=== PATIENT | male | born 1980 | race Hispanic/Latino ===

== ENCOUNTER 2024-05-08 12:39 | Outpatient (CLI) | payer BC | END 2024-05-08 12:40 | disposition home or self-care (01) | LOC: MERGE 12:39 → CT 12:39 | PROVIDERS: ATTEND Orthopaedic Surgery | DX: S52.571A Other intraarticular fracture of lower end of right radius, initial encounter for closed fracture (principal) ==

== ENCOUNTER 2024-05-10 08:13 | Day surgery (SDC) | payer BC ==
[2024-05-08 13:45] VITALS: BMI 38.0
[2024-05-10] MEDS ORDERED: Lidocaine 1% PF 5 ML VIAL ONE (09:30)
[2024-05-10] MEDS ORDERED: PROPOFOL 20 ML ONE (09:30)
[2024-05-10] MEDS ORDERED: CEFAZOLIN 2 GM VIAL ONE (09:32)
[2024-05-10] MEDS ORDERED: fentaNYL 50 mcg/mL 1 mL Vial ONE ×2 (09:37→10:35)
[2024-05-10] MEDS ORDERED: Midazolam HCl 2 mg/2 ml Vial ONE (09:37)
[2024-05-10] MEDS ORDERED: Ropivacaine 0.5% HCl/PF (150 MG/30 ML VIAL) ONE (09:38)
[2024-05-10] MEDS ORDERED: Ondansetron PF 4 MG/2 ML Vial ONE (11:48)
[2024-05-10] MEDS ORDERED: Dexamethasone 4 mg/ml Vial ONE (11:48)
[2024-05-10] MEDS ORDERED: fentaNYL PF 100 MCG/2 ML SYRINGE ONE (12:48)
[2024-05-10] MEDS ORDERED: HYDROmorphone 0.5 MG/0.5 ML SYRINGE ONE ×3 (13:03→13:40)
[2024-05-10] MEDS ORDERED: Ketorolac Tromethamine 30 MG (1 mL) VIAL ONE (14:18)
[2024-05-10] MEDS ORDERED: HYDROcodone/Acetaminophen 5/325 mg Tablet ONE (15:22)
== END 2024-05-10 16:41 | disposition home or self-care (01) ==
LOC: SDC 08:13 → MERGE 08:13 → SDC 16:41
PROVIDERS: ATTEND Orthopaedic Surgery
PROC: 01N50ZZ Release Median Nerve, Open Approach (ICD-10-PCS; principal; 2024-05-10)
PROC: 3E0T3BZ Introduction of Anesthetic Agent into Peripheral Nerves and Plexi, Percutaneous Approach (ICD-10-PCS; principal; 2024-05-10)
PROC: 0PSH04Z Reposition Right Radius with Internal Fixation Device, Open Approach (ICD-10-PCS; principal; 2024-05-10)
DX: S52.571A Other intraarticular fracture of lower end of right radius, initial encounter for closed fracture (principal); S42.022A Displaced fracture of shaft of left clavicle, initial encounter for closed fracture; E78.00 Pure hypercholesterolemia, unspecified; Z79.899 Other long term (current) drug therapy; F17.200 Nicotine dependence, unspecified, uncomplicated; G56.01 Carpal tunnel syndrome, right upper limb; V89.2XXA Person injured in unspecified motor-vehicle accident, traffic, initial encounter
CPT/HCPCS: C1713; C1889; J1100; J1171; J1885; J2250; J2405; J2704; J2795; J3010